=== PATIENT | female | born 1955 | race Caucasian/White ===

== ENCOUNTER 2018-09-22 12:07 | Emergency (ER) | payer MEDICAID ==
[~2018-09-22] VITALS: Ht 162.6 cm; Wt 100.0 kg
[2018-09-22 12:13] VITALS: BP 135/68
[2018-09-22] MEDS ORDERED: DOXY100T2 PO (13:30)
== END 2018-09-22 13:40 | disposition home or self-care (01) ==
LOC: ER 12:08
DX: S60.322A Blister (nonthermal) of left thumb, initial encounter (principal); L08.9 Local infection of the skin and subcutaneous tissue, unspecified; W26.0XXA Contact with knife, initial encounter; Y93.89 Activity, other specified; Y92.89 Other specified places as the place of occurrence of the external cause; Y99.8 Other external cause status
CPT/HCPCS: 87070; 87077; 87186; 99283

== ENCOUNTER 2019-01-24 19:57 | Emergency (ER) | payer MEDICARE, MEDICAID ==
[~2019-01-24] VITALS: Ht 162.6 cm; Wt 88.5 kg
[~2019-01-24 19:57] MED LIST: DOXY100T2 PO
[2019-01-24 20:10] VITALS: BP 162/92
== END 2019-01-24 20:50 | disposition home or self-care (01) ==
LOC: ER 19:58
DX: S00.33XA Contusion of nose, initial encounter (principal); S09.90XA Unspecified injury of head, initial encounter; Z79.899 Other long term (current) drug therapy; W01.0XXA Fall on same level from slipping, tripping and stumbling without subsequent striking against object, initial encounter; Y93.89 Activity, other specified; Y92.89 Other specified places as the place of occurrence of the external cause; Y99.8 Other external cause status
CPT/HCPCS: 70450; 99284